=== PATIENT | male | born 1975 | race Caucasian/White ===

== ENCOUNTER 2017-04-26 11:51 | Outpatient (CLI) | payer OTHER ==
--- NOTE | 2017-04-26 12:58 | XRAY Report ---
TWO VIEW CHEST: 04/26/2017 CLINICAL INDICATION: Cough, crackles left lung. FINDINGS: Frontal and lateral views of the chest demonstrate a normal cardiac silhouette. There is an infiltrate in the medial left lower lobe. No effusion or pneumothorax is present. IMPRESSION: LEFT LOWER LOBE INFILTRATE. TD: 04/26/2017 12:56
== END 2017-04-26 11:52 | disposition home or self-care (01) ==
LOC: DI.S 11:51
PROVIDERS: ATTEND Registered Nurse
DX: R91.8 Other nonspecific abnormal finding of lung field (principal)
CPT/HCPCS: 71046